=== PATIENT | female | born 1965 | race Caucasian/White ===

== ENCOUNTER 2017-02-19 21:09 | Emergency (ER) | payer OTHER ==
[~2017-02-19] VITALS: Ht 154.9 cm; Wt 50.0 kg
[2017-02-19] MEDS ORDERED: FAMO20 PO (21:19)
[2017-02-19] MEDS ORDERED: SERT50TA12 PO (21:19)
[2017-02-19] MEDS ORDERED: TRAZ-144 PO (21:19)
[2017-02-19] MEDS ORDERED: ACLI400A2 IH (21:19)
[2017-02-19] MEDS ORDERED: PRED10 PO (21:19)
[2017-02-19] MEDS ORDERED: RIFAX550 PO (21:19)
[2017-02-19] MEDS ORDERED: LISI-660 PO (21:19)
[2017-02-19] MEDS ORDERED: ALEN70TA48 PO (21:19)
[2017-02-19] MEDS ORDERED: SPIR25 PO (21:19)
[2017-02-19] MEDS ORDERED: LEVE500T53 PO (21:19)
[2017-02-19] MEDS ORDERED: LACT30L PO (21:24)
[2017-02-19 22:05] LABS: BASOPHILS # (AUTO) 0.03 K/uL (0.00-0.20); BASOPHILS % (AUTO) 0.4 % (0.0-2.0); EOSINOPHILS # (AUTO) 0.17 K/uL (0.00-0.70); EOSINOPHILS % (AUTO) 2.17 % (1.0-6.0); HEMATOCRIT 35.8 % (36-46); HEMOGLOBIN 11.8 g/dL (12.0-16.0); LYMPHOCYTES # (AUTO) 4.1 K/uL (1.0-4.8); LYMPHOCYTES % (AUTO) 50.8 % (22.0-44.0); MEAN CORPUSCULAR HEMOGLOBIN 30.1 pg (26.0-34.0); MEAN CORPUSCULAR VOLUME 91 fL (80-100); MONOCYTES # (AUTO) 0.6 K/uL (0.1-1.0); NEUTROPHILS # (AUTO) 3.1 K/uL (1.8-7.7); NEUTROPHILS % (AUTO) 38.6 % (40.0-70.0); PLATELET COUNT (AUTO) 205 K/uL (150-450); RED BLOOD CELL COUNT(AUTO) 3.93 MIL/uL (4.00-5.20)
[2017-02-19 22:09] LABS: ANION GAP 7 mmol/L (8-16); CALCIUM, TOTAL 8.7 mg/dL (8.8-10.5); CARBON DIOXIDE 28 mmol/L (22-29); CHLORIDE 106 mmol/L (98-107); CREATININE 0.51 mg/dL (0.60-1.30); GLOMERULAR FILTR. RATE CALC > 60 mL/min (>60); POTASSIUM 3.8 mmol/L (3.5-5.1); SODIUM SERUM 141 mmol/L (136-145); UREA NITROGEN, BLOOD 16 mg/dL (7-18)
[2017-02-19 22:10] LABS: INR 1.1 (0.9-1.1); PROTHROMBIN TIME 11.9 SEC (9.4-11.6)
[2017-02-19 22:24] LABS: B-TYPE NATRIURETIC PEPTIDE 27 pg/mL (0-100)
[2017-02-19 22:34] LABS: ALANINE AMINOTRANSFERASE 42 U/L (12-78); ALBUMIN 3.6 g/dL (3.4-5.0); ASPARTATE AMINOTRANSFERASE 29 U/L (15-37); BILIRUBIN,TOTAL 0.2 mg/dL (0.1-1.0); CREATINE KINASE MB 3.2 ng/mL (0-5); CREATINE KINASE, TOTAL 77 U/L (26-192)
[2017-02-19] MEDS ORDERED: SODIUM CHLORIDE 0.9% 1,000 ML IV ONE (23:45)
[2017-02-20 00:44] LABS: APPEARANCE,URINE CLEAR (CLEAR); GLUCOSE, URINE (UA) NEGATIVE (NEGATIVE); KETONES,URINE NEGATIVE (NEGATIVE); LEUKOCYTE ESTERASE ,URINE NEGATIVE (NEGATIVE); OCCULT BLOOD,URINE NEGATIVE (NEGATIVE); PROTEIN,URINE NEGATIVE (NEGATIVE)
[2017-02-20 00:47] LABS: ADD UA MICROSCOPIC NO
[2017-02-20 01:12] VITALS: BP 119/84
== END 2017-02-20 01:20 | disposition home or self-care (01) ==
LOC: EMS 21:16
DX: E86.0 Dehydration (principal); R47.1 Dysarthria and anarthria; R11.10 Vomiting, unspecified; J44.9 Chronic obstructive pulmonary disease, unspecified; K21.9 Gastro-esophageal reflux disease without esophagitis; I10 Essential (primary) hypertension; Z87.891 Personal history of nicotine dependence
CPT/HCPCS: 36415; 70450; 71010; 80053; 80307; 81003; 82140; 82550; 82553; 83880; 84484; 85025; 85610; 93005; 96360; 99291; J7030